=== PATIENT | male | born 1995 ===

== ENCOUNTER 2019-04-26 21:37 | Emergency (ER) | payer SELFPAY ==
--- NOTE | 2019-04-26 21:49 | Emergency Department Report ---
Blank Doc - Documentation Documentation: This is a 23-year-old male that presents with right knee dog bite. Stated dog has all vaccines. Animal control was called. This initial assessment/diagnostic orders/clinical plan/treatment(s) is/are subject to change based on patient's health status, clinical progression and re- assessment by fellow clinical providers in the ED. Further treatment and workup at subsequent clinical providers discretion. Patient/guardians urged not to elope from the ED as their condition may be serious if not clinically assessed and managed. Initial orders include: 1- Patient sent to [facility] for further evaluation and treatment
[2019-04-26 21:54] VITALS: BP 132/74
[2019-04-27] MEDS ORDERED: NORCO 5/325 PO STA (00:48)
[2019-04-27] MEDS ORDERED: TENIVAC IM ONE (00:48)
--- NOTE | 2019-04-27 00:57 | Emergency Department Report ---
ED Lower Extremity HPI - General Chief Complaint: Animal Bite Stated Complaint: DOG BITE Time Seen by Provider: 04/26/19 21:48 Source: patient Mode of arrival: Ambulatory Limitations: No Limitations - History of Present Illness Initial Comments: 23-year-old male presents to the emergency department with his mother and the neighbor's dog bit his right leg. Neighbor states his pupils of the leash and bit Mr. Stearns an unprovoked attack. The dogs immunizations shots are up-to-date and the authorities and the appropriate authorities were notified. Reports built up and pain to the right leg has full range of motion with no limitation. The bite occurred about 5-6 hours ago MD Complaint: leg injury -: Gradual Injury: Leg: Right Severity: moderate Improves With: nothing Worsens With: movement, palpation Associated Symptoms: able to partially bear weight - Related Data Previous Rx's Medication Instructions Recorded Last Taken Type Amoxicillin/Potassium Clav 1 each PO BID #20 tablet 04/27/19 Unknown Rx [Augmentin 875-125 Tablet] Allergies Allergy/AdvReac Type Severity Reaction Status Date / Time No Known Allergies Allergy Unverified 04/26/19 21:41 ED Review of Systems ROS: Stated complaint: DOG BITE Other details as noted in HPI Comment: All other systems reviewed and negative ED Past Medical Hx - Past Medical History Previous Medical History?: Yes - Surgical History Past Surgical History?: No - Social History Smoking Status: Never Smoker - Medications Home Medications: Home Medications Medication Instructions Recorded Confirmed Last Taken Type Amoxicillin/Potassium Clav 1 each PO BID #20 tablet 04/27/19 Unknown Rx [Augmentin 875-125 Tablet] ED Physical Exam - General Limitations: No Limitations General appearance: alert, in no apparent distress - Head Head exam: Present: atraumatic, normocephalic - Eye Eye exam: Present: normal appearance, PERRL, EOMI Pupils: Present: normal accommodation - ENT ENT exam: Present: normal exam, mucous membranes moist, TM's normal bilaterally - Neck Neck exam: Present: normal inspection, full ROM - Respiratory Respiratory exam: Present: normal lung sounds bilaterally. Absent: respiratory distress, wheezes, rales, chest wall tenderness, accessory muscle use - Cardiovascular Cardiovascular Exam: Present: regular rate, normal rhythm. Absent: systolic murmur, diastolic murmur, rubs, gallop - GI/Abdominal GI/Abdominal exam: Present: soft, normal bowel sounds - Rectal Rectal exam: Present: deferred - Extremities Exam Extremities exam: Present: normal inspection, full ROM, normal capillary refill. Absent: joint swelling, calf tenderness - Back Exam Back exam: Present: normal inspection - Neurological Exam Neurological exam: Present: alert, oriented X3, CN II-XII intact - Psychiatric Psychiatric exam: Present: normal affect, normal mood - Skin Skin exam: Present: warm, dry, normal color, other (puncture wound to the right lateral aspect thigh.. No cellulitis no foreign bodies appreciated). Absent: rash ED Course Vital Signs 04/26/19 21:49 Temperature 98.8 F Pulse Rate 86 Respiratory 18 Rate Blood Pressure 132/74 O2 Sat by Pulse 99 Oximetry Critical care attestation.: If time is entered above; I have spent that time in minutes in the direct care of this critically ill patient, excluding procedure time. ED Disposition Clinical Impression: Dog bite, Puncture wound Disposition: [id number] TO HOME OR SELFCARE Is pt being admited?: No Does the pt Need Aspirin: No Condition: Stable Instructions: Animal Bite (ED) Referrals: PHILIPP LUJAN MD [Primary Care Provider] - 3-5 Days
[2019-04-27] MEDS ORDERED: NORCO 5/325 ONE (01:04)
[2019-04-27] MEDS ORDERED: AUGMENTIN 875 MG ONE (01:15)
[2019-04-27] MEDS ORDERED: AUGMENTIN 875 MG PO ONE (01:21)
== END 2019-04-27 01:55 | disposition home or self-care (01) ==
LOC: ED 21:37
DX: S71.131A Puncture wound without foreign body, right thigh, initial encounter (principal); W54.0XXA Bitten by dog, initial encounter; Y93.89 Activity, other specified; Y92.098 Other place in other non-institutional residence as the place of occurrence of the external cause; Y99.8 Other external cause status
CPT/HCPCS: 90471; 90714

== ENCOUNTER 2020-07-29 13:19 | Emergency (ER) | payer SELFPAY ==
[2020-07-29 13:31] VITALS: BP 131/81
== END 2020-07-29 15:28 | disposition left against medical advice (07) ==
LOC: ED 13:19
DX: F41.0 Panic disorder [episodic paroxysmal anxiety] (principal); Z53.21 Procedure and treatment not carried out due to patient leaving prior to being seen by health care provider